=== PATIENT | female | born 1950 | race Caucasian/White ===

== ENCOUNTER 2019-01-23 18:48 | Emergency (ER) | payer MEDICARE ==
[~2019-01-23] VITALS: Ht 162.6 cm; Wt 70.0 kg
[2019-01-23] MEDS ORDERED: LYRICA50 MG PO (20:57)
[2019-01-23] MEDS ORDERED: LYRICA150 MG PO (20:59)
[2019-01-23] MEDS ORDERED: SYNTHROID125 MCG PO (20:59)
[2019-01-23] MEDS ORDERED: LAMICTAL XR200 MG PO (21:00)
[2019-01-23] MEDS ORDERED: FLUOXETINE20 MG PO ×2 (21:03)
[2019-01-23] MEDS ORDERED: DEXEDRINE10 MG PO (21:05)
[2019-01-23] MEDS ORDERED: FENTANYL50 MCG/HR TD (21:05)
[2019-01-23] MEDS ORDERED: OXYCODONE15 MG PO (21:07)
[2019-01-23] MEDS ORDERED: CLONAZEPAM0.5 M1 PO (21:08)
[2019-01-23] MEDS ORDERED: VOLTAREN - GENE75 MG PO (23:04)
[2019-01-23 23:35] VITALS: BP 139/74
== END 2019-01-23 23:35 | disposition home or self-care (01) ==
LOC: ED 18:48
PROC: 0RSUXZZ Reposition Right Metacarpophalangeal Joint, External Approach (ICD-10-PCS; principal; 2019-01-23)
DX: S63.114A Dislocation of metacarpophalangeal joint of right thumb, initial encounter (principal); W19.XXXA Unspecified fall, initial encounter; Y92.002 Bathroom of unspecified non-institutional (private) residence as the place of occurrence of the external cause; Z91.81 History of falling

== ENCOUNTER 2019-01-29 21:50 | Emergency (ER) | payer MEDICARE ==
[~2019-01-29] VITALS: Ht 162.6 cm; Wt 66.0 kg
[~2019-01-29 21:50] MED LIST: CLONAZEPAM0.5 M1 PO; DEXEDRINE10 MG PO; FENTANYL50 MCG/HR TD; FLUOXETINE20 MG PO; LAMICTAL XR200 MG PO; LYRICA150 MG PO; LYRICA50 MG PO; OXYCODONE15 MG PO; SYNTHROID125 MCG PO; VOLTAREN - GENE75 MG PO
[2019-01-30 01:15] VITALS: BP 150/80
== END 2019-01-30 01:15 | disposition home or self-care (01) ==
LOC: ED 21:50
DX: S60.011A Contusion of right thumb without damage to nail, initial encounter (principal); X58.XXXA Exposure to other specified factors, initial encounter; Y92.009 Unspecified place in unspecified non-institutional (private) residence as the place of occurrence of the external cause

== ENCOUNTER 2019-06-25 | Emergency (ER) | payer MEDICARE | END 2019-06-25 21:39 | disposition home or self-care (01) | PROC: 0RSUXZZ Reposition Right Metacarpophalangeal Joint, External Approach (ICD-10-PCS; principal; 2019-06-25) | DX: S63.260A Dislocation of metacarpophalangeal joint of right index finger, initial encounter (principal); S00.03XA Contusion of scalp, initial encounter; M25.531 Pain in right wrist; W10.9XXA Fall (on) (from) unspecified stairs and steps, initial encounter; Y92.009 Unspecified place in unspecified non-institutional (private) residence as the place of occurrence of the external cause; Z91.81 History of falling ==

== ENCOUNTER 2019-12-06 13:34 | Emergency (ER) | payer MEDICARE ==
[~2019-12-06] VITALS: Ht 162.6 cm; Wt 75.0 kg
[2019-12-06 15:51] VITALS: BP 136/77
== END 2019-12-06 15:51 | disposition home or self-care (01) ==
LOC: ED 13:34
DX: S80.02XA Contusion of left knee, initial encounter (principal); W01.0XXA Fall on same level from slipping, tripping and stumbling without subsequent striking against object, initial encounter; Y92.512 Supermarket, store or market as the place of occurrence of the external cause

== ENCOUNTER 2020-01-03 11:06 | Emergency (ER) | payer MEDICARE ==
[~2020-01-03] VITALS: Ht 162.6 cm; Wt 80.0 kg
[2020-01-03 12:32] LABS: URINE BILIRUBIN - DIPSTICK NEGATIVE (NEGATIVE); URINE BLOOD DIPSTICK NEGATIVE (NEGATIVE); URINE COLOR YELLOW; URINE GLUCOSE - DIPSTICK NEGATIVE (NEGATIVE); URINE KETONE NEGATIVE (NEGATIVE); URINE LEUK ESTERASE NEGATIVE (NEGATIVE); URINE NITRITE - DIPSTICK NEGATIVE (Negative); URINE PROTEIN - DIPSTICK NEGATIVE (NEG-TRACE); URINE UROBILINOGEN - DIPSTICK 0.2 E.U./dL (0.2)
[2020-01-03 12:33] LABS: HEMATOCRIT 37.1 % (37.0-47.0); HEMOGLOBIN 11.8 g/dl (12.0-16.0); IMMATURE GRANULOCYTES 0.5 % (0.0-5.0); MEAN CELL VOLUME 93.5 fL CALC (80.0-100.0); MEAN CORPUSCULAR HGB 29.7 pG CALC (26.0-32.0); MEAN CORPUSCULAR HGB CONC 31.8 g/dL CAL (32.0-36.0); NEUT# 3.92 thou/uL (2.00-7.15); RED BLOOD COUNT 3.97 mill/uL (4.20-5.60); RED CELL DISTRI WIDTH 12.4 % (11.5-15.5)
[2020-01-03 12:56] LABS: ALBUMIN 4.2 g/dL (3.2-5.0); ALKALINE PHOSPHATASE 102 u/l (38-126); ANION GAP 8 (6-22 (CALC)); BILIRUBIN, TOTAL 0.4 mg/dL (0.0-1.4); BUN 13 mg/dL (8-23); BUN/CREATININE RATIO 16 (12-20 (CALC)); CARBON DIOXIDE 31 mmol/l (22-30); CHLORIDE 100 mmol/l (95-108); CPK 55 u/l (30-165); CREATININE 0.8 mg/dL (0.5-1.0); GFR > 60 ML/MIN (>=60 (CALC)); GFR FOR AFR.AMER. > 60 ML/MIN (>=60 (CALC)); POTASSIUM 3.9 mmol/l (3.5-5.1); SGOT/AST 40 u/l (9-36); SODIUM 135 mmol/l (137-146); TOTAL PROTEIN 7.4 g/dL (6.3-8.2)
[2020-01-03] MEDS ORDERED: MECLIZINE25 MG PO ×2 (15:20)
[2020-01-03 15:28] VITALS: BP 151/95
== END 2020-01-03 15:28 | disposition home or self-care (01) ==
LOC: ED 11:06
DX: R42 Dizziness and giddiness (principal); S00.11XA Contusion of right eyelid and periocular area, initial encounter; W19.XXXA Unspecified fall, initial encounter; Z91.81 History of falling
CPT/HCPCS: Q9967

== ENCOUNTER 2020-01-11 07:52 | Emergency (ER) | payer MEDICARE ==
[~2020-01-11] VITALS: Ht 162.6 cm; Wt 75.0 kg
[~2020-01-11 07:52] MED LIST changes: +MECLIZINE25 MG PO
[2020-01-11 08:26] LABS: HEMATOCRIT 38.2 % (37.0-47.0); HEMOGLOBIN 12.8 g/dl (12.0-16.0); IMMATURE GRANULOCYTES 0.3 % (0.0-5.0); MEAN CELL VOLUME 88.2 fL CALC (80.0-100.0); MEAN CORPUSCULAR HGB 29.6 pG CALC (26.0-32.0); MEAN CORPUSCULAR HGB CONC 33.5 g/dL CAL (32.0-36.0); NEUT# 5.08 thou/uL (2.00-7.15); RED BLOOD COUNT 4.33 mill/uL (4.20-5.60); RED CELL DISTRI WIDTH 11.8 % (11.5-15.5)
[2020-01-11 08:34] LABS: URINE BLOOD DIPSTICK SMALL (NEGATIVE); URINE COLOR YELLOW; URINE GLUCOSE - DIPSTICK NEGATIVE (NEGATIVE); URINE KETONE >=80 mg/dL (NEGATIVE); URINE LEUK ESTERASE NEGATIVE (NEGATIVE); URINE NITRITE - DIPSTICK NEGATIVE (Negative); URINE PROTEIN - DIPSTICK TRACE mg/dL (NEG-TRACE); URINE SPECIFIC GRAVITY >=1.030; URINE UROBILINOGEN - DIPSTICK 0.2 E.U./dL (0.2)
[2020-01-11 08:40] LABS: URINE BILIRUBIN - DIPSTICK NEGATIVE (NEGATIVE)
[2020-01-11] MEDS ORDERED: OXYCODONE20 M1 PO (08:48)
[2020-01-11 08:49] LABS: ALBUMIN 4.4 g/dL (3.2-5.0); ALKALINE PHOSPHATASE 100 u/l (38-126); BUN 12 mg/dL (8-23); BUN/CREATININE RATIO 18 (12-20 (CALC)); CHLORIDE 101 mmol/l (95-108); CREATININE 0.7 mg/dL (0.5-1.0); GFR > 60 ML/MIN (>=60 (CALC)); GFR FOR AFR.AMER. > 60 ML/MIN (>=60 (CALC)); POTASSIUM 3.5 mmol/l (3.5-5.1); SGOT/AST 29 u/l (9-36); SODIUM 135 mmol/l (137-146); TOTAL PROTEIN 7.5 g/dL (6.3-8.2)
[2020-01-11] MEDS ORDERED: FENTANYL50 MCG/HR TD (08:51)
[2020-01-11 08:57] LABS: ANION GAP 16 (6-22 (CALC)); BILIRUBIN, TOTAL 0.6 mg/dL (0.0-1.4); CARBON DIOXIDE 22 mmol/l (22-30)
[2020-01-11] MEDS ORDERED: ZOFRAN4 MG/TAB PO (09:52)
[2020-01-11 10:01] VITALS: BP 151/89
== END 2020-01-11 10:08 | disposition home or self-care (01) ==
LOC: ED 07:52
PROVIDERS: Student in an Organized Health Care Education/Training Program
DX: F11.23 Opioid dependence with withdrawal (principal); R11.2 Nausea with vomiting, unspecified; S00.11XA Contusion of right eyelid and periocular area, initial encounter; W19.XXXA Unspecified fall, initial encounter; M79.7 Fibromyalgia; Z91.81 History of falling
CPT/HCPCS: J2060

== ENCOUNTER 2021-10-19 07:28 | Inpatient (IN) | payer MEDICARE ==
[~2021-10-19] VITALS: Ht 160 cm; Wt 59.0 kg
[2021-10-19] VITALS (18 sets, daily range): BP systolic 101–211; BP diastolic 67–182
[~2021-10-19 07:28] MED LIST changes: +ALL DAY10 MG PO; +BREO ELLIPTA 101 INH IN; +CYANOCOBAL1000 MCG/M IM; +LEVOTHYROXIN75 MCG PO; +LYRICA75 MG PO; +LYSINE1000 MG PO; +MAGNESIUM250 M2 PO; +NASONEX50 MCG/ACT; +OMEGA PO; +OXYCODONE HYDRO10 MG PO; +OXYCODONE20 M1 PO; +OXYCONTIN40 MG PO; +PROBIOTI3 PO; +STOOL SOFTENER100 M2 PO; +VILAZODONE; +WAL-PROFEN200 M1 PO; +WELLBUTRIN XL300 MG PO; +ZOFRAN4 MG/TAB PO; +[UNRECOGNIZED DRUG - SUPPLY]; +[UNRECOGNIZED DRUG - SUPPLY] IJ
--- NOTE | 2021-10-19 07:51 | NUR ---
PATIENT TO ROOM VIA WHEELCHAIR
--- NOTE | 2021-10-19 08:06 | NUR ---
PATIENT MOANING AND ROCKING SELF FROM SIDE TO SIDE. PATIENT MEDICATED PER MD ORDER. LAB AT BEDSIDE TO COLLECT BLOOD AND SWABS
[2021-10-19 08:16] LABS: HEMOGLOBIN 14.4 g/dl (12.0-16.0); IMMATURE GRANULOCYTES 0.2 % (0.0-5.0); MEAN CELL VOLUME 93.4 fL CALC (80.0-100.0); MEAN CORPUSCULAR HGB 30.6 pG CALC (26.0-32.0); MEAN CORPUSCULAR HGB CONC 32.7 g/dL CAL (32.0-36.0); NEUT# 13.25 thou/uL (2.00-7.15); RED BLOOD COUNT 4.71 mill/uL (4.20-5.60); RED CELL DISTRI WIDTH 12.1 % (11.5-15.5)
[2021-10-19 08:29] LABS: ACT PARTIAL THROMBO TIME 25.6 SECONDS (20.0-32.5); INTERNATIONAL NORMALIZED RATIO 0.9 RATIO (0.7-1.3); PROTHROMBIN TIME 9.9 SECONDS (9.0-12.5)
[2021-10-19 08:31] LABS: ALBUMIN 4.4 g/dL (3.2-5.0); ALKALINE PHOSPHATASE 100 u/l (38-126); AMYLASE 71 u/l (30-110); ANION GAP 12 (6-22 (CALC)); BILIRUBIN, TOTAL 0.5 mg/dL (0.0-1.4); BUN 16 mg/dL (8-23); BUN/CREATININE RATIO 18 (12-20 (CALC)); CHLORIDE 100 mmol/l (95-108); CREATININE 0.9 mg/dL (0.5-1.0); ETHYL ALCOHOL 0 mg/dl (0-30); GFR > 60 ML/MIN (>=60 (CALC)); GFR FOR AFR.AMER. > 60 ML/MIN (>=60 (CALC)); LIPASE 46 u/l (23-300); POTASSIUM 3.4 mmol/l (3.5-5.1); SGOT/AST 26 u/l (9-36); SODIUM 138 mmol/l (137-146); TOTAL PROTEIN 7.8 g/dL (6.3-8.2)
[2021-10-19 08:40] LABS: CARBON DIOXIDE 29 mmol/l (22-30)
--- NOTE | 2021-10-19 09:21 | NUR ---
PATIENT RETURNS FROM RADIOLOGY REPORTING PAIN TO LUQ. AWARE.
--- NOTE | 2021-10-19 10:33 | NUR ---
THIS RN TO BEDSIDE, INTRODUCED SELF TO PT AND . PT IS IN NAD BUT STILL RPTS ABDOMINAL PAIN THATS SHARP AT A 7/10. PT HAS SBO AND IS AWAITING SURGICAL CONSULT. THIS RN EXPLAINED TO PT AND NG TUBE PLACEMENT AND PURPOSE. UNDERSTANDING VERBALIZED. ASKED PT FOR URINE, ASSISTED PT ONTO BEDPAN AND URINE WAS COLLECTED. BELONGINGS WERE COLLECTED AND PLACED IN BAG. IVF FINISHED, LINE WAS FLUSHED AND DISCONNECTED. NG SUPPLIES AT BEDSIDE FOR PLACEMENT. PT AND HAS NO FURTHER QUESTIONS AT THIS TIME. CALL WATKINS IN REACH.
[2021-10-19 10:55] LABS: URINE BILIRUBIN - DIPSTICK NEGATIVE (NEGATIVE); URINE BLOOD DIPSTICK NEGATIVE (NEGATIVE); URINE COLOR YELLOW; URINE GLUCOSE - DIPSTICK NEGATIVE (NEGATIVE); URINE KETONE 15 mg/dL (NEGATIVE); URINE LEUK ESTERASE NEGATIVE (NEGATIVE); URINE PROTEIN - DIPSTICK NEGATIVE (NEG-TRACE); URINE UROBILINOGEN - DIPSTICK 0.2 E.U./dL (0.2)
[2021-10-19 10:56] LABS: URINE NITRITE - DIPSTICK NEGATIVE (Negative)
--- NOTE | 2021-10-19 11:01 | NUR ---
ATTEMPTED TO PLACE NG TUBE WITH ASSISTANCE FROM LINDA ALCOCER. DURING ATTEMPT, DR BECKHAM ENTERED THE ROOM AND STATED THAT PT WILL BE GOING TO SURGERY FOR SBO AND THAT NG TUBE IS NO LONGER INDICATED AT THIS TIME. DR BECKHAM AT BEDSIDE DISCUSSING POC WIHT PT. TOLERATED WELL. MAINTAIN NPO AT THIS TIME.
--- NOTE | 2021-10-19 11:40 | NUR ---
MADE SECOND ATTEMPT AT THIS TIME FOR NG TUBE PLACEMENT WITH ASSITANCE FROM MATTHIAS ALCOCER. PT TOLERATED WELL, CONFIRMED BY AUSCULTATION. TUBE HOOKED UP TO LOW INTERMITTENT SUCTION. NOTED CLEAR BORWN LIQUID WITH SEDIMENT IN COLLECTION CONTAINER
[2021-10-19] MEDS ORDERED: WELLBUTRIN150 M1 PO (11:56)
[2021-10-19] MEDS ORDERED: WELLBUTRIN XL300 MG PO (11:56)
[2021-10-19] MEDS ORDERED: ADDERALL10 MG PO (11:57)
[2021-10-19] MEDS ORDERED: LORAZEPAM0.5 MG PO (11:58)
--- NOTE | 2021-10-19 11:59 | NUR ---
MED REC COMPLETED AT THIS TIME. OR RNS HERE AT BEDSIDE TO TRANSPORT PT TO SURGERY. PT LEAVES ED IN NAD. A&OX3, NG IN PLACE
--- NOTE | 2021-10-19 20:00 | NUR ---
PT IN BED VERY ANXIOUS ABOUT NG TUBE, VERY UNCOMFORTABLE, GAVE PAIN MED, PT WAS RELIEVED BY MED, IN BED AWAKE, BED IN LOW POSITION, CALL LIGHT IN REACH
--- NOTE | 2021-10-19 22:30 | NUR ---
PT,S NG TUBE REMOVED, NO DISTRESS NOTED, IN BED RESTING, BED IN LOW POSITION, CALL LIGHT IN REACH
[2021-10-20] VITALS (9 sets, daily range): BP systolic 129–143; BP diastolic 66–77
--- NOTE | 2021-10-20 04:19 | NUR ---
PT IN BED ASLEEP, NO DISTRESS NOTED, NO OVERNIGHT EVENTS, BED IN LOW POSITION, CALL LIGHT IN REACH
[2021-10-20 05:12] LABS: MEAN CELL VOLUME 96.5 fL CALC (80.0-100.0); MEAN CORPUSCULAR HGB 31.1 pG CALC (26.0-32.0); MEAN CORPUSCULAR HGB CONC 32.2 g/dL CAL (32.0-36.0); RED BLOOD COUNT 3.44 mill/uL (4.20-5.60); RED CELL DISTRI WIDTH 12.4 % (11.5-15.5)
[2021-10-20 05:24] LABS: HEMATOCRIT 33.2 % (37.0-47.0); HEMOGLOBIN 10.7 g/dl (12.0-16.0)
[2021-10-20 05:27] LABS: ANION GAP 6 (6-22 (CALC)); BUN 9 mg/dL (8-23); BUN/CREATININE RATIO 13 (12-20 (CALC)); CARBON DIOXIDE 27 mmol/l (22-30); CHLORIDE 107 mmol/l (95-108); CREATININE 0.7 mg/dL (0.5-1.0); GFR > 60 ML/MIN (>=60 (CALC)); GFR FOR AFR.AMER. > 60 ML/MIN (>=60 (CALC)); MAGNESIUM 1.8 mg/dL (1.6-2.3); POTASSIUM 3.7 mmol/l (3.5-5.1); SODIUM 136 mmol/l (137-146)
--- NOTE | 2021-10-20 08:36 | NUR ---
PATIENT AWAKE, ALERT, MEDICATED FOR PAIN, NO N/V, PASSING GAS, HAD MEDIUM BOWEL MOVEMENT.
--- NOTE | 2021-10-20 12:00 | NUR ---
PATIENT AWAKE, ALERT, NO SIGNS OR SYMPTOMS OF DISTRESS. AWAITING DIET ORDERS.
--- NOTE | 2021-10-20 16:08 | NUR ---
REPORT RECIEVED FROM IVAN ALCOCER.
--- NOTE | 2021-10-20 16:19 | NUR ---
PT RESTING IN SEMI FOWLERS POSITION. A/OX3 ASSESSMENT COMPLETED. HEART RHYTHM NORMAL WITH TELE IN PLACE. RESPIRATIONS EVEN AND UNLABORED. BOWEL SOUNDS ACTIVE. IV NOTED TO LAC LR INFUSING @43. ABDOMEN SITES NOTED CDI. PT REQUESTED WARM BLANKET . BLANKET PROVIDED. PT C/O OF PAIN . MEDICATED PER EMAR. PT DENIES ADDITIONAL NEEDS AT THE MOMENT . ALL SAFETY PRECAUTIONS IN PLACE WITH CALL LIGHT IN REACH.
--- NOTE | 2021-10-20 18:08 | NUR ---
#20G LAC DISLODGED. NEW #22G STARTED IN RAC. PT STATES SHE NO LONGER WANTS IVF DUE TO BEEPING OF IV PUMP AND BEING RIGHT HANDED. IV FLUIDS ON HOLD. PT TOLERATING FLUID INTAKE WELL WITH NO NAUSEA OR VOMITTING. WILL CONTINUE TO MONITOR.
--- NOTE | 2021-10-20 19:50 | NUR ---
RECIEVED BEDSIDE REPORT ON PT, PATIENT ALERT AND ORIENTED X4, NO NEW FINDINGS, NO DISTRESS NOTED, BED IN LOW POSITION, CALL LIGHT IN REACH
--- NOTE | 2021-10-20 23:39 | NUR ---
pt was up walking the lawrence, now back to bed, no distress noted, bed in low position, call light in reach
[2021-10-21 04:12] VITALS: BP 135/61
--- NOTE | 2021-10-21 04:12 | NUR ---
NO OVERNIGHT EVENTS, PT IN BED ASLEEP, NO DISTRESS NOTED, BED IN LOW POSITION, CALL LIGHT IN REACH
[2021-10-21 05:54] LABS: HEMATOCRIT 33.4 % (37.0-47.0); HEMOGLOBIN 10.7 g/dl (12.0-16.0); MEAN CORPUSCULAR HGB 30.7 pG CALC (26.0-32.0); RED BLOOD COUNT 3.48 mill/uL (4.20-5.60); RED CELL DISTRI WIDTH 12.3 % (11.5-15.5)
[2021-10-21 06:05] LABS: ANION GAP 8 (6-22 (CALC)); BUN 6 mg/dL (8-23); BUN/CREATININE RATIO 9 (12-20 (CALC)); CARBON DIOXIDE 29 mmol/l (22-30); CHLORIDE 105 mmol/l (95-108); CREATININE 0.6 mg/dL (0.5-1.0); GFR > 60 ML/MIN (>=60 (CALC)); GFR FOR AFR.AMER. > 60 ML/MIN (>=60 (CALC)); POTASSIUM 3.4 mmol/l (3.5-5.1); SODIUM 139 mmol/l (137-146)
[2021-10-21 06:17] VITALS: BP 136/68
--- NOTE | 2021-10-21 07:00 | NUR ---
RECEIVE REPORT FROM ANA ROSA ALCOCER.
--- NOTE | 2021-10-21 07:30 | NUR ---
PATIENT ALERT AND ORIENTED X3. PATIENT REPORT PAIN AT THIS TIME. PATIENT IS EDUCATED ABOUD MEDICATIONS AND NURSING PLAN FOR TODAY . PATIENT REFER UNDERSTAND.
[2021-10-21 08:10] VITALS: BP 136/68
[2021-10-21] MEDS ORDERED: TRAMADOL HCL50 MG PO (09:55)
--- NOTE | 2021-10-21 11:57 | NUR ---
PATIENT STABLE IS DISCHARGED.
== END 2021-10-21 12:19 | disposition home or self-care (01) | DRG 337 ==
LOC: ED 07:28 → ED-I 10:35 → ED 11:05 → MS2 11:06
PROVIDERS: ADMIT Hospitalist; ATTEND Hospitalist
PROC: 0DN84ZZ Release Small Intestine, Percutaneous Endoscopic Approach (ICD-10-PCS; principal; 2021-10-19)
DX: K56.50 Intestinal adhesions [bands], unspecified as to partial versus complete obstruction (principal); E03.9 Hypothyroidism, unspecified; M79.7 Fibromyalgia; J45.909 Unspecified asthma, uncomplicated; F41.9 Anxiety disorder, unspecified; F32.A Depression, unspecified; T78.40XA Allergy, unspecified, initial encounter; X58.XXXA Exposure to other specified factors, initial encounter; Z91.81 History of falling; Z79.891 Long term (current) use of opiate analgesic; Z20.822 Contact with and (suspected) exposure to COVID-19
CPT/HCPCS: J0131; J1650; J3420; Q9967

== ENCOUNTER 2022-07-28 10:12 | Emergency (ER) | payer MEDICARE ==
[~2022-07-28] VITALS: Ht 162.6 cm; Wt 53.1 kg
[~2022-07-28 10:12] MED LIST changes: +ADDERALL10 MG PO; +LORAZEPAM0.5 MG PO; +TRAMADOL HCL50 MG PO; +WELLBUTRIN150 M1 PO
[2022-07-28 10:57] LABS: BASO% 0.5 % (0-3); EOS% 0.1 % (0-8); HEMATOCRIT 38.5 % (37.0-47.0); IMMATURE GRANULOCYTES 0.3 % (0.0-5.0); LYMPH% 11.8 % (15-41); MEAN CELL VOLUME 92.1 fL CALC (80.0-100.0); MEAN CORPUSCULAR HGB 30.6 pG CALC (26.0-32.0); MEAN CORPUSCULAR HGB CONC 33.2 g/dL CAL (32.0-36.0); MONO% 4.8 % (2-13); NEUT# 6.36 thou/uL (2.00-7.15); NEUT% 82.5 % (42-76); RED BLOOD COUNT 4.18 mill/uL (4.20-5.60); RED CELL DISTRI WIDTH 11.7 % (11.5-15.5)
[2022-07-28 10:58] LABS: HEMOGLOBIN 12.8 g/dl (12.0-16.0)
[2022-07-28 11:10] LABS: ALBUMIN 3.9 g/dL (3.2-5.0); ALKALINE PHOSPHATASE 84 u/l (38-126); ANION GAP 8 (6-22 (CALC)); BILIRUBIN, TOTAL 0.3 mg/dL (0.02-1.3); BUN 9 mg/dL (8-23); BUN/CREATININE RATIO 14 (12-20 (CALC)); CARBON DIOXIDE 27 mmol/l (22-30); CHLORIDE 102 mmol/l (95-108); CREATININE 0.7 mg/dL (0.5-1.0); GFR FOR AFR.AMER. > 60 ML/MIN (>=60 (CALC)); GFR OTHER RACES > 60 ML/MIN (>=60 (CALC)); POTASSIUM 3.2 mmol/l (3.5-5.1); SGOT/AST 25 u/l (9-36); SODIUM 135 mmol/l (137-146); TOTAL PROTEIN 6.9 g/dL (6.3-8.2)
[2022-07-28 12:33] LABS: URINE BILIRUBIN - DIPSTICK NEGATIVE (NEGATIVE); URINE BLOOD DIPSTICK NEGATIVE (NEGATIVE); URINE COLOR YELLOW; URINE GLUCOSE - DIPSTICK NEGATIVE (NEGATIVE); URINE KETONE 40 mg/dL (NEGATIVE); URINE LEUK ESTERASE NEGATIVE (NEGATIVE); URINE NITRITE - DIPSTICK NEGATIVE (Negative); URINE PROTEIN - DIPSTICK NEGATIVE (NEG-TRACE); URINE SPECIFIC GRAVITY 1.015; URINE UROBILINOGEN - DIPSTICK 0.2 E.U./dL (0.2)
[2022-07-28 12:40] VITALS: BP 163/89
[2022-07-28] MEDS ORDERED: ZOFRAN4 MG/TAB PO (13:11)
== END 2022-07-28 13:19 | disposition home or self-care (01) ==
LOC: ED 10:12
PROVIDERS: Family Medicine
DX: R10.84 Generalized abdominal pain (principal); J45.909 Unspecified asthma, uncomplicated; K21.9 Gastro-esophageal reflux disease without esophagitis; E03.9 Hypothyroidism, unspecified; Z20.822 Contact with and (suspected) exposure to COVID-19

== ENCOUNTER 2022-08-25 10:34 | Emergency (ER) | payer MEDICARE ==
[~2022-08-25] VITALS: Ht 162.6 cm; Wt 53.5 kg
[2022-08-25 11:12] LABS: BASO% 0.6 % (0-3); EOS% 0.3 % (0-8); HEMATOCRIT 42.2 % (37.0-47.0); HEMOGLOBIN 13.5 g/dl (12.0-16.0); IMMATURE GRANULOCYTES 0.1 % (0.0-5.0); LYMPH% 9.5 % (15-41); MEAN CORPUSCULAR HGB 30.1 pG CALC (26.0-32.0); MONO% 4.6 % (2-13); NEUT# 5.7 thou/uL (2.00-7.15); NEUT% 84.9 % (42-76); RED BLOOD COUNT 4.49 mill/uL (4.20-5.60); RED CELL DISTRI WIDTH 11.7 % (11.5-15.5)
[2022-08-25 11:24] LABS: ALBUMIN 4.3 g/dL (3.2-5.0); ALKALINE PHOSPHATASE 92 u/l (38-126); ANION GAP 10 (6-22 (CALC)); BILIRUBIN, TOTAL 0.4 mg/dL (0.02-1.3); BUN 10 mg/dL (8-23); BUN/CREATININE RATIO 14 (12-20 (CALC)); CARBON DIOXIDE 27 mmol/l (22-30); CHLORIDE 103 mmol/l (95-108); CREATININE 0.7 mg/dL (0.5-1.0); GFR FOR AFR.AMER. > 60 ML/MIN (>=60 (CALC)); GFR OTHER RACES > 60 ML/MIN (>=60 (CALC)); POTASSIUM 3.1 mmol/l (3.5-5.1); SGOT/AST 26 u/l (9-36); SODIUM 136 mmol/l (137-146); TOTAL PROTEIN 7.6 g/dL (6.3-8.2)
[2022-08-25] MEDS ORDERED: ZOFRAN4 MG/TAB PO (12:56)
[2022-08-25] MEDS ORDERED: K-TAB20 MEQ PO (12:58)
[2022-08-25 13:05] VITALS: BP 170/87
== END 2022-08-25 13:07 | disposition home or self-care (01) ==
LOC: ED 10:34
PROVIDERS: Family Medicine
DX: R10.13 Epigastric pain (principal); R10.12 Left upper quadrant pain; R11.2 Nausea with vomiting, unspecified; E87.6 Hypokalemia; K21.9 Gastro-esophageal reflux disease without esophagitis; J45.909 Unspecified asthma, uncomplicated; E03.9 Hypothyroidism, unspecified; M79.7 Fibromyalgia
CPT/HCPCS: Q9967

== ENCOUNTER 2022-10-07 17:22 | Emergency (ER) | payer MEDICARE ==
[~2022-10-07] VITALS: Ht 162.6 cm; Wt 50.9 kg
[~2022-10-07 17:22] MED LIST changes: +K-TAB20 MEQ PO
[2022-10-07 17:29] VITALS: BP 162/90
[2022-10-07 18:03] LABS: BASO% 0.5 % (0-3); EOS% 0.1 % (0-8); HEMATOCRIT 42.3 % (37.0-47.0); HEMOGLOBIN 13.7 g/dl (12.0-16.0); IMMATURE GRANULOCYTES 0.1 % (0.0-5.0); LYMPH% 12.6 % (15-41); MEAN CELL VOLUME 91.4 fL CALC (80.0-100.0); MEAN CORPUSCULAR HGB 29.6 pG CALC (26.0-32.0); MEAN CORPUSCULAR HGB CONC 32.4 g/dL CAL (32.0-36.0); NEUT# 6.57 thou/uL (2.00-7.15); NEUT% 81.7 % (42-76); RED BLOOD COUNT 4.63 mill/uL (4.20-5.60); RED CELL DISTRI WIDTH 11.4 % (11.5-15.5)
[2022-10-07 18:16] VITALS: BP 151/75
[2022-10-07 18:16] LABS: ALBUMIN 4.2 g/dL (3.2-5.0); ALKALINE PHOSPHATASE 87 u/l (38-126); BILIRUBIN, TOTAL 0.4 mg/dL (0.02-1.3); BUN 16 mg/dL (8-23); BUN/CREATININE RATIO 22 (12-20 (CALC)); CHLORIDE 105 mmol/l (95-108); CREATININE 0.7 mg/dL (0.5-1.0); GFR FOR AFR.AMER. > 60 ML/MIN (>=60 (CALC)); GFR OTHER RACES > 60 ML/MIN (>=60 (CALC)); LIPASE 77 u/l (23-300); POTASSIUM 3.5 mmol/l (3.5-5.1); SGOT/AST 23 u/l (9-36); SODIUM 136 mmol/l (137-146); TOTAL PROTEIN 7.1 g/dL (6.3-8.2)
[2022-10-07 18:18] LABS: ANION GAP 14 (6-22 (CALC)); CARBON DIOXIDE 21 mmol/l (22-30)
[2022-10-07 18:32] VITALS: BP 90/73
[2022-10-07 19:01] VITALS: BP 142/74
[2022-10-07 19:17] VITALS: BP 167/112
[2022-10-07 19:32] LABS: URINE BLOOD DIPSTICK TRACE-INTACT (NEGATIVE); URINE COLOR YELLOW; URINE GLUCOSE - DIPSTICK NEGATIVE (NEGATIVE); URINE KETONE 15 mg/dL (NEGATIVE); URINE LEUK ESTERASE NEGATIVE (NEGATIVE); URINE PROTEIN - DIPSTICK NEGATIVE (NEG-TRACE); URINE SPECIFIC GRAVITY 1.015; URINE UROBILINOGEN - DIPSTICK 0.2 E.U./dL (0.2)
[2022-10-07 19:33] LABS: URINE NITRITE - DIPSTICK NEGATIVE (Negative)
[2022-10-08 11:59] LABS: URINE BILIRUBIN - DIPSTICK NEGATIVE (NEGATIVE)
== END 2022-10-07 19:44 | disposition home or self-care (01) ==
LOC: ED 17:22
PROVIDERS: Family Medicine
DX: F11.23 Opioid dependence with withdrawal (principal); R10.84 Generalized abdominal pain; R11.2 Nausea with vomiting, unspecified; T40.2X6A Underdosing of other opioids, initial encounter; Z91.128 Patient's intentional underdosing of medication regimen for other reason; K21.9 Gastro-esophageal reflux disease without esophagitis; J45.909 Unspecified asthma, uncomplicated; M79.7 Fibromyalgia; E03.9 Hypothyroidism, unspecified; Z91.81 History of falling
CPT/HCPCS: Q9967

== ENCOUNTER 2023-01-01 08:05 | Emergency (ER) | payer MEDICARE ==
[~2023-01-01] VITALS: Ht 162.6 cm; Wt 48.0 kg
[2023-01-01 09:38] VITALS: BP 120/76
[2023-01-01] MEDS ORDERED: BACTRIM DS1 TAB PO (09:42)
== END 2023-01-01 09:40 | disposition home or self-care (01) ==
LOC: ED 08:05
PROC: 0HQFXZZ Repair Right Hand Skin, External Approach (ICD-10-PCS; principal; 2023-01-01)
DX: S61.216A Laceration without foreign body of right little finger without damage to nail, initial encounter (principal); E03.9 Hypothyroidism, unspecified; K21.9 Gastro-esophageal reflux disease without esophagitis; J45.909 Unspecified asthma, uncomplicated; M79.7 Fibromyalgia; W25.XXXA Contact with sharp glass, initial encounter; Z91.81 History of falling

== ENCOUNTER 2023-01-08 09:19 | Emergency (ER) | payer MEDICARE ==
[~2023-01-08] VITALS: Ht 162.6 cm; Wt 51.0 kg
[~2023-01-08 09:19] MED LIST changes: +BACTRIM DS1 TAB PO
[2023-01-08 09:32] VITALS: BP 146/87
[2023-01-08 09:46] VITALS: BP 145/116
[2023-01-08] MEDS ORDERED: MUPIROCIN2 % EX (09:48)
[2023-01-08 10:00] VITALS: BP 157/117
== END 2023-01-08 10:04 | disposition home or self-care (01) ==
LOC: ED 09:19
DX: L03.011 Cellulitis of right finger (principal); S61.411A Laceration without foreign body of right hand, initial encounter; J45.909 Unspecified asthma, uncomplicated; K21.9 Gastro-esophageal reflux disease without esophagitis; E03.9 Hypothyroidism, unspecified; M79.7 Fibromyalgia; X58.XXXA Exposure to other specified factors, initial encounter; Z91.81 History of falling; Z88.0 Allergy status to penicillin; Z88.1 Allergy status to other antibiotic agents

== ENCOUNTER 2023-07-29 18:09 | Emergency (ER) | payer MEDICARE ==
[2023-07-29] VITALS (9 sets, daily range): BP systolic 158–188; BP diastolic 90–108
[~2023-07-29] VITALS: Ht 162.6 cm; Wt 47.6 kg
[~2023-07-29 18:09] MED LIST changes: +ABILIFY10 MG PO; +MUPIROCIN2 % EX; +PROMETHAZINE HY25 M1 PO
[2023-07-29] MEDS ORDERED: LIDOCAINE W/ EPINEPHRINE 10 MG/ML INJ STI ONE (19:10)
[2023-07-29] MEDS ORDERED: CLEOCIN150 M1 PO (19:35)
[2023-07-29] MEDS ORDERED: CIPROFLOXACN500 MG PO (19:35)
[2023-07-29] MEDS ORDERED: DiphenhydrAMINE HCL 25 MG CPLT PO ONE (19:50)
[2023-07-29] MEDS ORDERED: DEXAMETHASONE SOD. PHOSPHATE 10 MG/ML VIAL IM ONE (19:50)
[2023-07-29] MEDS ORDERED: FAMOTIDINE 20 MG/TAB PO ONE (19:50)
[2023-07-29] MEDS ORDERED: cloNIDine HCL 0.1 MG/TAB PO ONE (19:55)
== END 2023-07-29 20:43 | disposition home or self-care (01) ==
LOC: ED 18:09
PROC: 0HQ1XZZ Repair Face Skin, External Approach (ICD-10-PCS; principal; 2023-07-29)
DX: S01.511A Laceration without foreign body of lip, initial encounter (principal); R21 Rash and other nonspecific skin eruption; J45.909 Unspecified asthma, uncomplicated; E03.9 Hypothyroidism, unspecified; W55.03XA Scratched by cat, initial encounter; Y92.009 Unspecified place in unspecified non-institutional (private) residence as the place of occurrence of the external cause

== ENCOUNTER 2023-12-23 19:04 | Emergency (ER) | payer MEDICARE ==
[~2023-12-23] VITALS: Ht 160 cm; Wt 46.7 kg
[2023-12-23] VITALS (13 sets, daily range): BP systolic 132–177; BP diastolic 83–116
[~2023-12-23 19:04] MED LIST changes: +CIPROFLOXACN500 MG PO; +CLEOCIN150 M1 PO
[2023-12-23] MEDS ORDERED: SODIUM CHLORIDE 0.9% 1,000 ML IV ONE (19:30)
[2023-12-23 19:53] LABS: EOS% 3.8 % (0-8); HEMOGLOBIN 12.3 g/dl (12.0-16.0); IMMATURE GRANULOCYTES 0.1 % (0.0-5.0); LYMPH% 31.7 % (15-41); MEAN CELL VOLUME 94.4 fL CALC (80.0-100.0); MEAN CORPUSCULAR HGB 31.4 pG CALC (26.0-32.0); MEAN CORPUSCULAR HGB CONC 33.2 g/dL CAL (32.0-36.0); MONO% 9.7 % (2-13); NEUT# 3.92 thou/uL (2.00-7.15); NEUT% 53.7 % (42-76); RED BLOOD COUNT 3.92 mill/uL (4.20-5.60); RED CELL DISTRI WIDTH 11.2 % (11.5-15.5)
[2023-12-23 20:06] LABS: ALBUMIN 3.9 g/dL (3.2-5.0); ALKALINE PHOSPHATASE 81 u/l (38-126); ANION GAP 8 (6-22 (CALC)); BILIRUBIN, TOTAL 0.4 mg/dL (0.02-1.3); BUN 12 mg/dL (8-23); BUN/CREATININE RATIO 13 (12-20 (CALC)); CARBON DIOXIDE 26 mmol/l (22-30); CHLORIDE 107 mmol/l (95-108); CREATININE 0.9 mg/dL (0.5-1.0); ESTIMATED GFR 67 ML/MIN (>=90 (CALC)); ETHYL ALCOHOL 0 mg/dl (0-30); POTASSIUM 3.2 mmol/l (3.5-5.1); SGOT/AST 23 u/l (9-36); SODIUM 138 mmol/l (137-146); TOTAL PROTEIN 7.2 g/dL (6.3-8.2)
[2023-12-23] MEDS ORDERED: POTASSIUM CHLORIDE 20 MEQ/TAB PO ONE (21:15)
[2023-12-23] MEDS ORDERED: LACTATED RINGER'S 1,000 ML IV ONE (21:15)
[2023-12-23 22:03] LABS: URINE BILIRUBIN - DIPSTICK Negative (NEGATIVE); URINE BLOOD DIPSTICK Negative (NEGATIVE); URINE GLUCOSE - DIPSTICK Negative (NEGATIVE); URINE KETONE Negative (NEGATIVE); URINE LEUK ESTERASE Negative (NEGATIVE); URINE NITRITE - DIPSTICK Negative (Negative); URINE PH 6.5 (4.5-8.0); URINE PROTEIN - DIPSTICK Negative (NEG-TRACE); URINE UROBILINOGEN - DIPSTICK 0.2 E.U./dL (0.2)
[2023-12-23 22:06] LABS: URINE COLOR Yellow
[2023-12-23] MEDS ORDERED: POT CHLORIDE20 ME2 PO (23:28)
== END 2023-12-23 23:56 | disposition home or self-care (01) ==
LOC: ED 19:04
PROVIDERS: Family Medicine
DX: R41.0 Disorientation, unspecified (principal); E87.6 Hypokalemia; K21.9 Gastro-esophageal reflux disease without esophagitis; J45.909 Unspecified asthma, uncomplicated; E89.0 Postprocedural hypothyroidism; Z20.822 Contact with and (suspected) exposure to COVID-19

== ENCOUNTER 2024-01-12 09:02 | Emergency (ER) | payer MEDICARE ==
[2024-01-12] VITALS (7 sets, daily range): BP systolic 92–185; BP diastolic 59–91
[~2024-01-12] VITALS: Ht 160 cm; Wt 49.2 kg
[~2024-01-12 09:02] MED LIST changes: +POT CHLORIDE20 ME2 PO
[2024-01-12] MEDS ORDERED: MORPHINE SULFATE 4 MG/ML VIAL IV ONE (09:30)
[2024-01-12] MEDS ORDERED: ONDANSETRON HCl 4 MG/2 ML SDV IV ONE (09:30)
[2024-01-12] MEDS ORDERED: KETOROLAC TROMETHAMINE 15 MG/ML SDV IV ONE (09:30)
[2024-01-12 09:47] LABS: BASO% 0.7 % (0-3); EOS% 1.7 % (0-8); HEMATOCRIT 39.5 % (37.0-47.0); HEMOGLOBIN 13.2 g/dl (12.0-16.0); IMMATURE GRANULOCYTES 0.2 % (0.0-5.0); LYMPH% 14.6 % (15-41); MEAN CELL VOLUME 92.5 fL CALC (80.0-100.0); MEAN CORPUSCULAR HGB 30.9 pG CALC (26.0-32.0); MEAN CORPUSCULAR HGB CONC 33.4 g/dL CAL (32.0-36.0); MONO% 4.1 % (2-13); NEUT# 4.59 thou/uL (2.00-7.15); NEUT% 78.7 % (42-76); RED BLOOD COUNT 4.27 mill/uL (4.20-5.60)
[2024-01-12 09:55] LABS: ALBUMIN 4.5 g/dL (3.2-5.0); BILIRUBIN, TOTAL 0.6 mg/dL (0.02-1.3); CREATININE 0.7 mg/dL (0.5-1.0); POTASSIUM 3.4 mmol/l (3.5-5.1); TOTAL PROTEIN 7.7 g/dL (6.3-8.2)
== END 2024-01-12 10:55 | disposition home or self-care (01) ==
LOC: ED 09:02
PROVIDERS: Family Medicine
DX: S22.42XA Multiple fractures of ribs, left side, initial encounter for closed fracture (principal); K21.9 Gastro-esophageal reflux disease without esophagitis; J45.909 Unspecified asthma, uncomplicated; E03.9 Hypothyroidism, unspecified; M79.7 Fibromyalgia; W06.XXXA Fall from bed, initial encounter

== ENCOUNTER 2024-06-23 05:18 | Emergency (ER) | payer MEDICARE ==
[~2024-06-23] VITALS: Ht 160 cm; Wt 50.0 kg
[2024-06-23] MEDS ORDERED: ONDANSETRON HCl 4 MG/2 ML SDV IV STA (05:44)
[2024-06-23] MEDS ORDERED: KETOROLAC TROMETHAMINE 15 MG/ML SDV IV STA (05:44)
[2024-06-23] MEDS ORDERED: SODIUM CHLORIDE 0.9% 1,000 ML IV STA (05:44)
[2024-06-23 06:10] LABS: BASO% 0.8 % (0-3); EOS% 3.5 % (0-8); HEMATOCRIT 37.7 % (37.0-47.0); HEMOGLOBIN 12.7 g/dl (12.0-16.0); IMMATURE GRANULOCYTES 0.3 % (0.0-5.0); LYMPH% 17.2 % (15-41); MEAN CELL VOLUME 92.9 fL CALC (80.0-100.0); MEAN CORPUSCULAR HGB 31.3 pG CALC (26.0-32.0); MEAN CORPUSCULAR HGB CONC 33.7 g/dL CAL (32.0-36.0); MONO% 8.3 % (2-13); NEUT# 4.96 thou/uL (2.00-7.15); NEUT% 69.9 % (42-76); RED BLOOD COUNT 4.06 mill/uL (4.20-5.60); RED CELL DISTRI WIDTH 11.8 % (11.5-15.5)
[2024-06-23 06:20] LABS: ALBUMIN 4.3 g/dL (3.2-5.0); BILIRUBIN, TOTAL 0.8 mg/dL (0.02-1.3); CREATININE 0.6 mg/dL (0.5-1.0); POTASSIUM 3.1 mmol/l (3.5-5.1); TOTAL PROTEIN 7.6 g/dL (6.3-8.2)
[2024-06-23 06:31] VITALS: BP 131/111
[2024-06-23 07:00] VITALS: BP 148/86
[2024-06-23 07:26] VITALS: BP 154/79
[2024-06-23 07:30] VITALS: BP 141/76
[2024-06-23 08:53] VITALS: BP 141/76
[2024-06-23 18:04] LABS: URINE BILIRUBIN - DIPSTICK Negative (NEGATIVE); URINE BLOOD DIPSTICK Trace-intact (NEGATIVE); URINE GLUCOSE - DIPSTICK Negative (NEGATIVE); URINE KETONE 40 mg/dL (NEGATIVE); URINE LEUK ESTERASE Negative (NEGATIVE); URINE NITRITE - DIPSTICK Negative (Negative); URINE PROTEIN - DIPSTICK Negative (NEG-TRACE); URINE SPECIFIC GRAVITY 1.015; URINE UROBILINOGEN - DIPSTICK 0.2 E.U./dL (0.2)
[2024-06-23 18:05] LABS: URINE COLOR Yellow
== END 2024-06-23 09:04 | disposition home or self-care (01) ==
LOC: ED 05:18
PROVIDERS: Emergency Medicine
DX: F11.23 Opioid dependence with withdrawal (principal); R10.32 Left lower quadrant pain; R11.2 Nausea with vomiting, unspecified; M79.7 Fibromyalgia; K21.9 Gastro-esophageal reflux disease without esophagitis; J45.909 Unspecified asthma, uncomplicated; E03.9 Hypothyroidism, unspecified
CPT/HCPCS: J1885; J2405; Q9967